=== PATIENT | male | born 1950 | race Caucasian/White ===

== ENCOUNTER → 2018-09-10 | Outpatient (CLI) | payer MEDICARE, BC ==
[~2018-09-10] MED LIST: OMEP-110 PO
== END | disposition home or self-care (01) ==
LOC: STAR 13:11
PROVIDERS: ATTEND Internal Medicine Geriatric Medicine
DX: Z01.818 Encounter for other preprocedural examination (principal); K22.2 Esophageal obstruction; Z88.2 Allergy status to sulfonamides
CPT/HCPCS: 93005

== ENCOUNTER 2018-10-05 08:00 | Day surgery (SDC) | payer BC, MEDICARE ==
[~2018-10-05] VITALS: Ht 193 cm; Wt 93.2 kg
[2018-10-05] MEDS ORDERED: LACTATED RINGERS 1,000 ML IV SCH (08:27)
[2018-10-05 08:30] VITALS: BP 151/100
[2018-10-05] MEDS ORDERED: LIDOCAINE-MPF 1%, 2ML INFIL ONE (08:30)
[2018-10-05] MEDS ORDERED: PROPOFOL 10 MG/ML, 20ML ONE (09:54)
[2018-10-05] MEDS ORDERED: MIDAZOLAM 1 MG/ML, 2ML ONE (09:58)
[2018-10-05] MEDS ORDERED: FENTANYL PF 100 MCG/2ML IV PRN ×2 (10:00)
[2018-10-05] MEDS ORDERED: MEPERIDINE/PF 25MG/0.5ML IVPush PRN ×2 (10:00)
[2018-10-05] MEDS ORDERED: OXYcodone 5 MG/5 ML ORAL.SOL UDC PO PRN ×2 (10:00)
[2018-10-05] MEDS ORDERED: HYDROmorphone 1 MG/ML, 1ML IV PRN ×2 (10:00)
[2018-10-05] MEDS ORDERED: LABETALOL 5MG/ML, 20ML IV PRN ×2 (10:00)
[2018-10-05] MEDS ORDERED: ONDANSETRON 2MG/ML, 2ML IVPush PRN ×2 (10:00)
[2018-10-05] MEDS ORDERED: MIDAZOLAM 1 MG/ML, 2ML IV PRN ×2 (10:00)
== END 2018-10-05 12:30 | disposition home or self-care (01) ==
LOC: OUT 08:00
PROVIDERS: ATTEND Internal Medicine
DX: K22.2 Esophageal obstruction (principal); K21.9 Gastro-esophageal reflux disease without esophagitis; Z88.1 Allergy status to other antibiotic agents
CPT/HCPCS: 43249; C1725; J2250; J2704; J7120

== ENCOUNTER 2019-03-15 07:00 | Day surgery (SDC) | payer BC, MEDICARE ==
[~2019-03-15] VITALS: Ht 193 cm; Wt 95.9 kg
[2019-03-15] MEDS ORDERED: LACTATED RINGERS 1,000 ML IV SCH (07:35)
[2019-03-15 07:38] VITALS: BP 160/95
[2019-03-15] MEDS ORDERED: OXYM15MI4 NS (07:59)
[2019-03-15] MEDS ORDERED: LIDOCAINE-MPF 1%, 2ML INFIL ONE (08:00)
[2019-03-15] MEDS ORDERED: PROPOFOL 50 ML ONE (08:30)
[2019-03-15] MEDS ORDERED: ONDANSETRON 2MG/ML, 2ML IV PRN (10:00)
[2019-03-15] MEDS ORDERED: FENTANYL PF 100 MCG/2ML IV PRN (10:00)
[2019-03-15] MEDS ORDERED: ACETAMINOPHEN 325 MG TABLET PO PRN (10:00)
== END 2019-03-15 11:20 | disposition home or self-care (01) ==
LOC: OUT 07:00
PROVIDERS: ATTEND Internal Medicine
DX: K22.2 Esophageal obstruction (principal); K21.9 Gastro-esophageal reflux disease without esophagitis; Z88.1 Allergy status to other antibiotic agents
CPT/HCPCS: 43239; 43249; 88305; 93005; C1725; J2704; J7120